=== PATIENT | male | born 1970 | race Caucasian/White ===

== ENCOUNTER 2017-11-01 17:24 | Emergency (ER) | payer BC ==
[2017-11-01] MEDS ORDERED: Fentanyl 100 MCG/2 ML VIAL ONE (18:10)
[2017-11-01] MEDS ORDERED: Metoclopramide HCl 10 MG/2 ML VIAL ONE (18:11)
[2017-11-01] MEDS ORDERED: Ketorolac Tromethamine 30 MG/ML VIAL ONE (18:11)
[2017-11-01] MEDS ORDERED: Dexamethasone 4 mg/ml Vial ONE (18:21)
[2017-11-01 18:48] LABS: #Eosinphils 0.1 thou/uL (0.0-0.7); #Lymphocytes 1.4 thou/uL (1.20-3.40); #Monocytes 0.7 thou/uL (0.11-0.59); #Neutrophils 6.3 thou/uL (1.40-6.50); %Basophils 0.3 % (0.0-1.0); %Eosinophils 1.2 % (0.0-10.0); %Lymphocytes 16.3 % (21.0-51.0); %Monocytes 8.4 % (0.0-10.0); %Neutrophils 73.7 % (42.0-75.0); Hemoglobin 14.4 g/dL (14.0-18.0); Mean Corpuscular HGB CONC 33.9 g/dL (32.0-36.0); Mean Corpuscular Hemoglobin 30.1 pg (27.0-31.0); Mean Corpuscular Volume 88.7 fL (78.0-98.0); Mean Platelet Volume 6.6 fL (7.4-10.4); Platelet Count 253 thou/uL (130-400); RBC Distribution Width 11.2 % (11.5-14.5); White Blood Cell (WBC) Count 8.6 thou/uL (4.8-10.8)
[2017-11-01 19:08] LABS: ALT (SGPT) 14 U/L (8-55); AST (SGOT) 10 U/L (5-34); Albumin 3.9 g/dL (3.5-5.0); Alkaline Phosphatase 54 U/L (40-150); Anion Gap 12 mmol/L (10-20); BUN (Urea Nitrogen) 7 mg/dL (8.9-20.6); Bilirubin, Total 1.1 mg/dL (0.2-1.2); CK (CPK) 104 U/L (30-200); Calc. Creatinine Clearance 0 mL/min (70-130); Calcium 8.7 mg/dL (7.8-10.44); Carbon Dioxide 25 mmol/L (22-29); Chloride 100 mmol/L (98-107); Estimated GFR-MDRD Greater than 90; Globulin 2.7 g/dL (2.4-3.5); Glucose 106 mg/dL (70-105); Potassium 4.1 mmol/L (3.5-5.1); Protein, Total 6.6 g/dL (6.0-8.3); Sodium 133 mmol/L (136-145)
[2017-11-01 19:11] LABS: Bilirubin Negative (Negative); Blood, Urine Negative (Negative); Clarity CLEAR (Clear); Glucose, Urine (Dipstick) Negative (Negative); Leukocyte Negative (Negative); Nitrite Negative (Negative); Protein, Urine (Dipstick) Negative (Neg-Trace); Specific Gravity, Urine 1.014 (1.002-1.036)
--- NOTE | 2017-11-01 19:33 | RAD ---
CHEST ONE VIEW: HISTORY: Fever. COMPARISON: 10/29/2017 FINDINGS: The lungs are clear. No pneumothorax or effusion. The cardiac silhouette and mediastinal contours a re normal for technique. IMPRESSION: No acute intracranial abnormality. POS: [facility]
[2017-11-01 19:47] LABS: Color Of CSF Supernatant COLORLESS (Colorless); Tube # 2; Unspun CSF Color COLORLESS (Colorless)
[2017-11-01 20:01] LABS: CSF, Glucose 62 mg/dl (40-70); CSF, Protein 50 mg/dL (15-40)
--- NOTE | 2017-11-01 20:10 | CT ---
CT BRAIN WITHOUT CONTRAST: HISTORY: Headache. COMPARISON: None. FINDINGS: No acute territorial infarct or hemorrhage. No midline shift or mass effect. Mild left mucosal sinu s disease at the ethmoids. The calvarium is intact. The globes are normal. IMPRESSION: No acute intracranial abnormality. POS: [facility]
[2017-11-01 20:30] LABS: CSF Source CSF; Clarity Clear (Clear); RBC Count - Manual 0 /cumm (None Seen); Tube # 1; Tube # 4; WBC/NonHematics Count - Manual 23 /cumm (0-5); WBC/NonHematics Count - Manual 7 /cumm (0-5)
[2017-11-01 20:34] LABS: Cell Count Non Hematic 7 %; Lymphocytes 93 %
== END 2017-11-01 21:36 | disposition home or self-care (01) ==
LOC: ERS 17:24
DX: A87.9 Viral meningitis, unspecified (principal); E78.5 Hyperlipidemia, unspecified; F90.9 Attention-deficit hyperactivity disorder, unspecified type; Z79.899 Other long term (current) drug therapy
CPT/HCPCS: 36415; 62270; 70450; 71045; 80053; 81003; 82550; 82945; 83605; 84157; 85025; 85060; 86788; 86789; 87040; 87070; 87205; 87255; 89051; 96361; 96365; 96375; J1100; J1885; J2765; J3010

== ENCOUNTER 2023-09-01 08:18 | Outpatient (CLI) | payer BC | END 2023-09-01 08:19 | disposition home or self-care (01) | LOC: ULT 08:18 | PROVIDERS: ATTEND Family Medicine | DX: R10.11 Right upper quadrant pain (principal); K76.0 Fatty (change of) liver, not elsewhere classified | CPT/HCPCS: 76705 ==

== ENCOUNTER 2023-09-07 10:37 | Emergency (ER) | payer BC | END 2023-09-07 11:50 | disposition home or self-care (01) | LOC: ERS 10:37 | DX: H43.11 Vitreous hemorrhage, right eye (principal); E78.5 Hyperlipidemia, unspecified; Z79.899 Other long term (current) drug therapy | CPT/HCPCS: 99283 ==